=== PATIENT | female | born 1980 | race Caucasian/White ===

== ENCOUNTER → 2022-02-17 11:24 | Outpatient (CLI) | payer BC, SELFPAY | PROVIDERS: PCP Family Medicine; Visit Provider Family Medicine | DX: U07.1 COVID-19 (principal); R05.1 Acute cough | CPT/HCPCS: C9803; U0003; U0005 ==

== ENCOUNTER 2022-09-08 07:41 | Emergency (ER) | payer BC, SELFPAY ==
[2022-09-08] VITALS (7 sets, daily range): BP systolic 121–129; BP diastolic 75–91; PULSE 83–96; RESP 15–18; TEMP 36.7–36.9; O2SAT 97–100; BMI 30.9
--- NOTE | 2022-09-08 08:16 | HMH.EDABDPAI ---
Discharge Plan Disposition Patient Disposition: Home, Self-Care Condition: Fair Prescriptions Prescriptions: New hydrocodone-acetaminophen 5-300 mg tablet 1 tab PO Q6H PRN (Reason: pain) Qty: 7 0RF ondansetron 4 mg film 4 mg PO Q4H 15 Days Qty: 15 0RF Rx Instructions: give 1st dose 30min before emetogenic chemo hydrocodone-acetaminophen 5-325 mg tablet 1 tab PO Q6H Qty: 10 0RF Referrals Follow up/Referrals: Destin Arredondo MD [Staff Physician] - 7-14 days Clinical Impressions Clinical Impression: Cholelithiasis Instructions Patient Instructions: DI for Acute Abdominal Pain Discharge ED Provider: Ag Loomis Abdominal Pain HPI General Chief Complaint: Abdominal Pain Stated Complaint: abd pain vomiting Time Seen by Provider: 09/08/22 08:05 Mode of Arrival: Ambulatory Source of Information: Patient Limitations: No Limitations Description of Symptoms (Recalled from ER Triage Doc. by RN): 42 yo F presents to ED with c/o gallbladder pain. pt has been having symptoms for approx 1 month. pt had abdominal ultrasound on wednesday and it showed stones. History of Present Illness HPI narrative: The patient reports RUQ pain X 2 weeks. She reports the pain worsened last night complaint: abdominal pain Onset (ago): week(s) (2) Consistency: constant Location: RUQ and epigastric Severity: moderate Quality: sharp Radiation: epigastric Relieving factors: nothing Exacerbating factors: eating Related Data Previous Rx's Medication Instructions Recorded hydrocodone 5 mg-acetaminophen 300 1 tab PO Q6H PRN pain #7 tabs 09/08/22 mg tablet hydrocodone 5 mg-acetaminophen 325 1 tab PO Q6H #10 tabs 09/08/22 mg tablet ondansetron 4 mg oral soluble film 4 mg PO Q4H 15 days #15 ea 09/08/22 Allergies Allergy/AdvReac Type Severity Reaction Status Date / Time No Known Allergies Allergy Verified 09/08/22 08:14 [facility] Disclaimer: The information contained in this section may have been updated after the patient was seen, as this information can be updated by other users. Social History Smoking Status: Never smoker alcohol intake: never current occupational status: employed Travel in the last 8 weeks: None ROS Obtained: Yes Systems reviewed as appropriate & no additional complaints except as documented Gastrointestinal Gastrointestingal: Reports abdominal pain, constipation, nausea and vomiting Physical Exam General General appearance: alert and in no apparent distress Head Head exam: atraumatic Eye Eye exam: Present normal appearance ENT ENT exam: Present normal exam Respiratory Respiratory exam: Present normal lung sounds bilaterally Cardiovascular Cardiovascular exam: Present regular rate Abdominal Exam Abdominal exam: Present soft Abdominal tenderness: Present RUQ and epigastrium Neurological Exam Neurological exam: Present alert and oriented X3 Psychiatric Psychiatric exam: Present normal affect and normal mood Skin Skin exam: Present warm and dry Medical Decision Making Bo Inquiry Pt receiving controlled substance: Yes Bo was queried for this patient: Yes Risks and benefits of using a controlled substance: were discussed with pt by me Vital Signs: 09/08/22 07:42 09/08/22 08:00 09/08/22 08:30 Temperature 98.4 F Temperature Source Oral Pulse Rate 92 H 88 Pulse Rate [Left] 96 H Respiratory Rate 15 Blood Pressure 126/87 129/83 Blood Pressure [Right Arm] 122/91 H Blood Pressure Mean 100 100 Blood Pressure Mean [Right Arm] 101 02 Sat by Pulse Oximetry 100 97 98 Oxygen Delivery Method Room Air 09/08/22 09:00 09/08/22 09:30 09/08/22 10:00 Temperature Temperature Source Pulse Rate 83 Pulse Rate [Left] Respiratory Rate 18 Blood Pressure 129/79 128/86 129/80 Blood Pressure [Right Arm] Blood Pressure Mean 92 99 96 Blood Pressure Mean [Right Arm] 02 Sat by Pulse Oximetry Oxygen Delivery Method 0
[2022-09-08 08:22] LABS: Basophils % 0.3 % (0.1-2.0); Eosinophils # 0.2 K/mm3 (0.0-0.4); Eosinophils % 2.4 % (0.1-12.0); Hematocrit 41.4 % (37.0-47.0); Hemoglobin 13.7 g/dL (12.2-16.2); Lymphocytes # 1.7 K/mm3 (0.7-4.5); Lymphocytes % 23.6 % (10-50); Mean Corpuscular HGB Conc 33.1 g/dL (31.8-35.4); Mean Corpuscular Hemoglobin 29.7 pg (27.0-31.2); Mean Corpuscular Volume 89.9 fl (81-99); Mean Platelet Volume 7.9 fl (7.4-10.4); Monocytes # 0.5 K/mm3 (0.1-1.0); Monocytes % 6.3 % (1.7-9.3); Neutrophils # 4.8 K/mm3 (1.8-7.8); Neutrophils % 67.5 % (37.0-80.0); Platelet Count 287 K/mm3 (142-424); Red Blood Count 4.61 M/mm3 (4.20-5.40); Red Cell Distribution Width 13.1 % (11.5-17.5); White Blood Count 7.2 K/mm3 (4.8-10.8)
[2022-09-08 08:23] LABS: Chloride 104 mmol/L (98-107); Potassium 4.2 mmoL/L (3.5-5.1); Sodium 138 mmol/L (136-145)
[2022-09-08 08:25] LABS: Lipase 92 U/L (23-300)
[2022-09-08 08:26] LABS: Alanine Aminotransferase 20 U/L (12-78); Albumin Level 4.4 g/dl (3.5-5.0); Albumin/Globulin Ratio 1.3 (1.1-1.8); Alkaline Phosphatase 51 U/L (38-126); Anion Gap 16.2 mEq/L (5-15); Aspartate Amino Transferase 24 U/L (14-36); Blood Urea Nitrogen 7 mg/dl (7-17); Calcium 8.8 mg/dl (8.4-10.2); Carbon Dioxide 22 mmol/L (22.0-30.0); Creatinine Clearance Estimated 103 mL/min (50-200); Estimated Glomerular Filt Rate 68 ml/min (>60); GFR (African American) 82 ML/MIN (>60); Globulin 3.5 g/dL (1.3-3.2); Glucose 96 mg/dl (74-100); Total Protein,Serum 7.9 g/dl (6.3-8.2)
--- NOTE | 2022-09-08 09:03 | PC.NURSE ---
Called lab regarding lipase add on
[2022-09-08 09:28] LABS: Lipase 99 U/L (23-300)
[2022-09-08 09:47] LABS: Urine Pregnancy, HCG Qual. Negative (Negative)
== END 2022-09-08 10:43 | disposition home or self-care (01) ==
PROVIDERS: Emergency Provider Emergency Medicine
DX: K80.20 Calculus of gallbladder without cholecystitis without obstruction (principal); R10.11 Right upper quadrant pain
CPT/HCPCS: 80053; 81025; 83690; 85025; 96361; 96374; 96375; 96376; 99284; J2405

== ENCOUNTER → 2022-09-22 12:55 | Outpatient (CLI) | payer BC, SELFPAY ==
[2022-09-22 14:16] LABS: Basophils % 0.3 % (0.1-2.0); Eosinophils # 0.1 K/mm3 (0.0-0.4); Eosinophils % 2.8 % (0.1-12.0); Hemoglobin 12.7 g/dL (12.2-16.2); Lymphocytes # 1.4 K/mm3 (0.7-4.5); Lymphocytes % 29.4 % (10-50); Mean Corpuscular HGB Conc 32.4 g/dL (31.8-35.4); Mean Corpuscular Hemoglobin 29.4 pg (27.0-31.2); Mean Corpuscular Volume 90.7 fl (81-99); Mean Platelet Volume 8.2 fl (7.4-10.4); Monocytes # 0.3 K/mm3 (0.1-1.0); Monocytes % 5.9 % (1.7-9.3); Neutrophils % 61.7 % (37.0-80.0); Platelet Count 273 K/mm3 (142-424); Red Cell Distribution Width 13.2 % (11.5-17.5); White Blood Count 4.9 K/mm3 (4.8-10.8)
[2022-09-22 15:46] LABS: Chloride 105 mmol/L (98-107); Potassium 3.7 mmoL/L (3.5-5.1); Sodium 140 mmol/L (136-145)
[2022-09-22 15:48] LABS: Amylase 60 U/L (30-110); Blood Urea Nitrogen 9 mg/dl (7-17); Estimated Glomerular Filt Rate 68 ml/min (>60); GFR (African American) 82 ML/MIN (>60)
[2022-09-22 15:49] LABS: Alanine Aminotransferase 19 U/L (12-78); Albumin Level 4.1 g/dl (3.5-5.0); Albumin/Globulin Ratio 1.3 (1.1-1.8); Alkaline Phosphatase 48 U/L (38-126); Anion Gap 13.7 mEq/L (5-15); Aspartate Amino Transferase 22 U/L (14-36); Bilirubin,Total 0.3 mg/dl (0.2-1.3); Calcium 8.5 mg/dl (8.4-10.2); Carbon Dioxide 25 mmol/L (22.0-30.0); Globulin 3.1 g/dL (1.3-3.2); Glucose 90 mg/dl (74-100); Lipase 124 U/L (23-300); Total Protein,Serum 7.2 g/dl (6.3-8.2)
== END ==
PROVIDERS: PCP Physician Assistant; Visit Provider Surgery
DX: K80.20 Calculus of gallbladder without cholecystitis without obstruction (principal)
CPT/HCPCS: 36415; 80053; 82150; 83690; 85025

== ENCOUNTER 2022-09-24 06:11 | Day surgery (SDC) | payer BC, SELFPAY ==
[2022-09-22 17:37] VITALS: BMI 30.9
[2022-09-24] VITALS (12 sets, daily range): BP systolic 120–142; BP diastolic 74–89; PULSE 81–103; RESP 16–23; TEMP 36.1–43; O2SAT 91–99
[2022-09-24 06:25] LABS: Urine Pregnancy, HCG Qual. Negative (Negative)
--- NOTE | 2022-09-24 06:41 | P.PN_ITS ---
[facility] Disclaimer: The information contained in this section may have been updated after the patient was seen, as this information can be updated by other users. Medical History History of gastroesophageal reflux (GERD) History of hypothyroidism Surgical History History of repair of right rotator cuff Family History Other Family history of CABG Social History Smoking Status: Never smoker alcohol intake: never substance use type: denies use current occupational status: employed Travel in the last 8 weeks: None [facility] Anesthesia Checklist Patient Identification Patient Identification: Arm Band and Verbal (Name & ) Structural Data Admitted From: Home Planned Operative Procedure/s: Lap cholecystectomy Consent for Planned Operative Procedure(s) Verified: Yes NPO Status Verified Time NPO: 00:00 Chart Verification Results Verified: HCG Additional verifications Anesthesia Reactions: No Hx Blood Transfusions: No Blood Transfusion Reaction: No Airway Assessment C-Spine Mobility Assessed: Yes TMJ Mobility Assessed: Yes Dentition: Good Dentition Neurological Assessment Level of Consciousness: Awake Hx Seizures: No Numbness or tingling in extremities: No Anesthesia Plan Anesthesia Risk discussed: Yes Anesthesia Plan: Verified ASA Class: II Anesthesia Type: General
--- NOTE | 2022-09-24 07:40 | P.OP_ITS ---
Date of procedure: 09/24/22 Pre-op Diagnosis:: Chronic calculus cholecystitis Post-op Diagnosis:: Same Procedure performed:: Laparoscopic cholecystectomy Surgeon:: Destin Arredondo MD INSTRUMENT WORKER:: Debra Scott Anesthesia: GETChrissie Estimated blood loss (mL): 15 Operative findings:: Infundibular thickening Moderate pericholecystic fat stranding Operative note:: After informed consent was obtained, the patient was taken to the operating room and placed in the supine position. General anesthesia was induced and the abdomen was prepped and draped in a sterile fashion. After infiltration with local anesthetic an infraumbilical incision was made. A Veress needle was placed in position. The abdomen was insufflated. A 5 mm optical trocar was placed in position. Under direct visualization, a 12 mm trocar was placed in the subxiphoid position and 2 additional 5 mm trocars were placed in the right upper quadrant. The gallbladder was elevated up and over the liver margin. The tissue around the cystic duct was carefully dissected. 3 clips were placed proximally and the duct was transected with harmonic teresa. Harmonic teresa were then utilized to dissect the gallbladder away from the liver margin with careful attention to the control of the cystic artery. The gallbladder was placed in a retrieval bag and removed through the subxiphoid trocar site. The right upper quadrant was thoroughly irrigated. No active bleeding or bile leak was noted. Fascia at the subxiphoid trocar site was reapproximated utilizing the NeoClose device. The remaining trocars were removed. All wounds were irrigated and skin was closed with 4-0 Monocryl in a mattress fashion to facilitate hemostasis Steri-Strips were applied. The patient's anesthetic agents were reversed and extubation was completed prior to transfer to recovery in stable condition. Condition: stable Disposition: PACU Specimens:: Gallbladder Complications:: No immediate
--- NOTE | 2022-09-24 07:49 | EXP.ANES.I ---
[facility] Anesthesia Record Part I Anesthesia Record I Intake, IV Amount: 600 Estimated blood loss (mL): 15 Urine output (mL): 0 Blood Pressure: 126/74 SaO2: 92 Pulse Rate: 103 Respiratory Rate: 23 Temperature: 98.2 F Patient is:: Drowsy and Oral/Nasal airway Stable to PACU at:: 07:50
[2022-09-25 14:33] VITALS: BP 137/82; PULSE 83; TEMP 36.1
--- NOTE | 2022-09-25 14:33 | P.PNANES_ITS ---
[facility] Anesthesia Record Part II Anesthesia Record Part II Discharge Time: 08:39 Destination: Surgical Day Care (OP Surgery) PACU nurse assessment reviewed?: Yes Patient Condition:: Good Anesthesia Complications:: None Swallowing reflex intact?: Yes Cyanosis?: No Blood Pressure: 137/82 Pulse Rate: 83 Temperature: 97 F Mental Status: Alert & Oriented Pain level:: 4 Nausea and/or vomitting:: None Intake, IV Amount: 0
== END 2022-09-24 09:10 | disposition home or self-care (01) ==
PROVIDERS: PCP Physician Assistant; Visit Provider Surgery
PROC: 0FT44ZZ Resection of Gallbladder, Percutaneous Endoscopic Approach (ICD-10-PCS; CPT 47562; principal; 2022-09-24 07:00)
DX: K81.1 Chronic cholecystitis (principal)
CPT/HCPCS: 47562; 81025; 96374; J2405

== ENCOUNTER 2023-11-22 14:16 | Outpatient (CLI) | payer BC, SELFPAY ==
[2023-11-22 15:08] LABS: Alanine Aminotransferase 20 U/L (12-78); Albumin/Globulin Ratio 1.2 (1.1-1.8); Alkaline Phosphatase 31 U/L (38-126); Anion Gap 10.2 mEq/L (5-15); Aspartate Amino Transferase 26 U/L (14-36); Bilirubin,Total 0.6 mg/dl (0.2-1.3); Blood Urea Nitrogen 8 mg/dl (7-17); Calcium 8.8 mg/dl (8.4-10.2); Carbon Dioxide 26 mmol/L (22.0-30.0); Chloride 107 mmol/L (98-107); Chol/HDL Ratio 3.7 (1-3.5); Cholesterol 169 mg/dl (140-200); Estimated Glomerular Filt Rate 78 ml/min (>60); GFR (African American) 94 ML/MIN (>60); Globulin 3.3 g/dL (1.3-3.2); Glucose 87 mg/dl (74-100); HDL Cholesterol 46 mg/dl (40-60); Potassium 4.2 mmoL/L (3.5-5.1); Sodium 139 mmol/L (136-145); Total Protein,Serum 7.3 g/dl (6.3-8.2); Triglycerides 85 mg/dl (30-150); VLDL Cholesterol 17 mg/dL (0-40)
[2023-11-22 15:19] LABS: Direct LDL Cholesterol 86.24 mg/dL (100-129)
[2023-11-22 18:28] LABS: Hemoglobin A1C 4.6 % (4.0-6.0)
== END 2023-11-22 23:59 | disposition home or self-care (01) ==
LOC: LAB 14:18
PROVIDERS: Visit Provider Internal Medicine Endocrinology, Diabetes & Metabolism
DX: E66.9 Obesity, unspecified (principal)
CPT/HCPCS: 36415; 80053; 80061; 83036

== ENCOUNTER 2024-03-22 12:04 | Emergency (ER) | payer BC, SELFPAY ==
[2024-03-22 12:20] VITALS: BP 130/86; PULSE 105; RESP 18; TEMP 37.2; O2SAT 98; BMI 25.7
--- NOTE | 2024-03-22 12:27 | EXP.UTC ---
Discharge Plan Disposition Patient Disposition: Home, Self-Care Condition: Good Prescriptions Prescriptions: New nitrofurantoin monohyd/m-cryst [Macrobid] 100 mg capsule 100 mg PO Q12H 7 Days Qty: 14 0RF Rx Instructions: must administer with a meal/food phenazopyridine [Pyridium] 200 mg tablet 200 mg PO Q8H 2 Days Qty: 6 0RF No Action amitriptyline 50 mg tablet 50 mg PO DAILY pantoprazole 40 mg tablet,delayed release (DR/EC) 40 mg PO DAILY buspirone 7.5 mg tablet 7.5 mg PO DAILY levothyroxine 112 mcg tablet 112 mcg PO DAILY bupropion HCl 300 mg tablet extended release 24 hr 300 mg PO DAILY Wegovy 1.7 mg/0.75 mL pen injector 1.7 mg SQ WEEKLY Referrals Follow up/Referrals: Ila Isbell PA [Primary Care Provider] - See instructions Activity Restrictions/Add. Instructions Additional Instructions/Restrictions: *Increase fluids. Water not Soda or Tea *Start antibiotic immediately and be sure to take as ordered for the FULL length of time although you should start to see improvement over the next 48 hours *Pyridium as needed Remember this medication will turn your urine . This is normal but it will stain what ever it gets on *You should not use Pyridium for more than 48 hours. If so , follow up with your primary physician to review urine culture and ensure that antibiotic is adequate for infection *Be SURE to follow up anytime for new or worsening symptoms with your family doctor. AND in 48 hours for urine culture results with your family doctor, if you do not have a doctor then you may call back to the [facility] for urine culture results and further treatment. We do recommend that you choose and establish care with a Primary Care Physician. ?AND follow up with them ?in 10-14 days to repeat UA to ensure infection is resolved and blood no longer present *Be sure to let your PCP know that we sent urine cultures from the [facility] so they can follow up to ensure that you area the on the correct antibiotic Call your doctor office and make appointment for 48 hours (2 days from today) ?to follow up and get the results of your urine culture and further treatment Clinical Impressions Clinical Impression: UTI (urinary tract infection) Instructions Patient Instructions: DI for Acute Cystitis, Nitrofurantoin, Phenazopyridine Print Language Print Language: Khmer Discharge ED Provider: Kaley Horton [facility] [place] General Stated complaint: freg. burning when urinating Mode of Arrival: Ambulatory Source of Information: Patient Limitations: No Limitations Time Seen by Provider: 03/22/24 12:27 Description of Symptoms (Recalled from Triage Doc. by RN): PATIENT C/O BURNING AND FREQUENCY WITH URINATION SINCE YESTERDAY HEENT Symptoms (Recalled from RN notes): No Resp Symptoms (Recalled from RN notes): No Skin Symptoms (Recalled from RN notes): No MS Symptoms (Recalled from RN notes): No Functional Status (Recalled from RN notes): WNL History of Present Illness Provider Complaint: Patient states that she thinks she may have a UTI States that she started yesterday with feeling of urgency, frequency and burning with urination, Denies fever, chills, body aches, or abdominal or back pain Denies hx of kidney stones, denies pain that radiates from back States that this morning she was still having the burning and urgency and frequency so she came in States that she has Mirena in place Related Data Home Medications ?Medication ?Instructions ?Recorded ?Confirmed amitriptyline 50 mg tablet 50 mg PO DAILY 03/22/24 03/22/24 bupropion HCl 300 mg 24 hr tablet, 300 mg PO DAILY 03/22/24 03/22/24 extended release buspirone 7.5 mg tablet 7.5 mg PO DAILY 03/22/24 03/22/24 levothyroxine 112 mcg tablet 112 mcg PO DAILY 03/22/24 03/22/24 pantoprazole 40 mg tablet,delayed 40 mg PO DAILY 03/22/24 03/22/24 release semaglutide (weight loss) 1.7 1.7 mg SQ WEEKLY 03/22/24 03/22/24 mg/0.75 mL subcutaneous pen injector (Wegovy) Previous Rx's ?Medication ?Instructions ?Recorded nitrofurantoin 100 mg PO Q12H 7 days #14 caps 03/22/24 monohydrate/macrocrystals 100 mg capsule (Macrobid) phenazopyridine 200 mg tablet 200 mg PO Q8H pain 2 days #6 tabs 03/22/24 (Pyridium) Allergies Allergy/AdvReac Type Severity Reaction Status Date / Time No Known Allergies Allergy Verified 09/30/22 13:06 Worker's Comp Is this a Worker's Comp case?: No [facility] Disclaimer: The information contained in this section may have been updated after the patient was seen, as this information can be updated by other users. Medical History (Updated 03/22/24 @ 12:40 by Kaley Horton APRN) History of gastroesophageal reflux (GERD) History of hypothyroidism Surgical History (Updated 09/30/22 @ 13:28 by Destin Arredondo MD) History of laparoscopic cholecystectomy History of repair of right rotator cuff Family History Other Family history of CABG Social History Smoking Status: Never smoker alcohol intake: never substance use type: denies use current occupational status: employed Travel in the last 8 weeks: None Have you lived/traveled outside US in past 30 days?: No Contact w/someone who lives/traveled outside US past 30 days?: No Exposure to someone with infectious disease in past 14 days?: No Do you have a fever (greater than 100.4 F or 38 C)?: No Have you tested positive for COVID-19: No Exposed to someone with COVID-19 in past 14 days?: No Do you have a sore throat?: No Do you have a cough?: No Do you have any weakness?: No Do you have any diarrhea?: No Are you experiencing any unusual bleeding?: No Do you have any muscle aches/pain?: No Do you have any abdominal pain?: No Are you experiencing loss of taste or smell?: No ROS Obtained: Yes All systems reviewed & no additional complaints except as documented and Yes Systems reviewed as appropriate & no additional complaints except as documented Constitutional Constitutional: Reports system reviewed and no additional complaints, except as documented, Reports as per HPI, Denies body ache, Denies chills and Denies fever(s) ENT Ears, Nose, Mouth, and Throat: Reports system reviewed and no additional complaints, except as documented and Reports as per HPI Cardiovascular Cardiovascular: Reports system reviewed and no additional complaints, except as documented and Reports as per HPI Respiratory Respiratory: Reports system reviewed and no additional complaints, except as documented and Reports as per HPI Gastrointestinal Gastrointestingal: Reports system reviewed and no additional complaints, except as documented and as per HPI; Denies abdominal pain Genitourinary Female Genitourinary: Reports system reviewed and no additional complaints, except as documented, Reports as per HPI, Reports dysuria, Denies flank pain, Denies pelvic pain, Reports urinary frequency and Reports urinary urgency Musculoskeletal Musculoskeletal: Reports system reviewed and no additional complaints, except as documented and Reports as per HPI Integumentary/Breasts Skin/Breast: Reports system reviewed and no additional complaints, except as documented and Reports as per HPI Neurologic Neurologic: Reports system reviewed and no additional complaints, except as documented and Reports as per HPI Physical Exam General General appearance: alert and in no apparent distress ENT ENT exam: Present mucous membranes moist Respiratory Respiratory exam: Present normal lung sounds bilaterally; Absent respiratory distress or wheezes Cardiovascular Cardiovascular exam: Present regular rate, normal rhythm and normal heart sounds Abdominal Exam Abdominal exam: Present soft and normal bowel sounds; Absent distention, tenderness, guarding or rebound Back Exam Back exam: Present normal inspection and full ROM; Absent tenderness, CVA tenderness (R) or CVA tenderness (L) Neurological Exam Neurological exam: Present alert, oriented X3 and normal gait Medical Decision Making Medical Records Screening: Per USPSTF and CDC recommendations, given the prevalence of disease in our region, it is our hospital?s policy to screen for HIV and viral Hepatitis for all patients aged 18 and over and those with ongoing risk factors. Bo Inquiry Pt receiving controlled substance: No Bo was queried for this patient: No Vital Signs: 03/22/24 12:20 Temperature 99.0 F Temperature Source Oral Pulse Rate [Left Brachial] 105 H Respiratory Rate 18 Blood Pressure [Left Arm] 130/86 Blood Pressure Mean [Left Arm] 100 Blood Pressure Source [Left Arm] Automatic Cuff Blood Pressure Position [Left Arm] Sitting 02 Sat by Pulse Oximetry 98 Oxygen Delivery Method Room Air Lab Data Lab results reviewed: Yes I reviewed the patient's lab results.
[2024-03-22 12:28] LABS: Apearance,Urine Cloudy (Clear); Color,Urine Yellow (Yellow); PH,Urine 5.5 (5.0-8.5); Specific Gravity, Urine 1.015 (1.005-1.030)
[2024-03-22 12:29] LABS: Bilirubin,Urine Negative (Negative); Blood, Urine 3+ (Negative); Glucose,Urine (UA) Negative (Negative); Ketones,Urine Negative (Negative); Protein,Urine Negative (Negative); UTC Leukocyte Esterase,Urine 2+ (Negative); UTC Nitrate,Urine Negative (Negative); Urobilinogen,Urine 0.2 EU/dl (0.2)
[2024-03-22 12:42] VITALS: BP 130/86; PULSE 105; RESP 18; TEMP 37.2; O2SAT 98
--- NOTE | 2024-03-24 11:43 | PC.NURSE ---
SPOKE WITH PATIENT REGARDING HER URINE CULTURE RESULTS, WHICH SUGGESTS CONTAMINATION. PATIENT STATES SHE DOESN'T FEEL LIKE HER SYMPTOMS ARE IMPROVING MUCH. PATIENT ADVISED TO FOLLOW UP WITH PCP AND HAVE URINE RE-CHECKED
== END 2024-03-22 12:44 | disposition home or self-care (01) ==
PROVIDERS: Emergency Provider Nurse Practitioner; PCP Physician Assistant
DX: N39.0 Urinary tract infection, site not specified (principal)
CPT/HCPCS: 81003; 87086; 99213; G0381

== ENCOUNTER 2024-07-20 08:50 | Day surgery (SDC) | payer BC, SELFPAY ==
[2024-07-18 13:53] VITALS: BMI 25.0
[2024-07-20 09:17] VITALS: BP 118/67; PULSE 95; RESP 18; TEMP 37; O2SAT 98
[2024-07-20 09:20] LABS: Urine Pregnancy, HCG Qual. Negative (Negative)
--- NOTE | 2024-07-20 09:23 | EXP.ANES.CKL ---
[facility] Disclaimer: The information contained in this section may have been updated after the patient was seen, as this information can be updated by other users. Medical History Depression Anxiety History of gastroesophageal reflux (GERD) History of hypothyroidism Surgical History History of laparoscopic cholecystectomy History of repair of right rotator cuff Family History Other Family history of CABG Social History Smoking Status: Never smoker alcohol intake: never substance use type: denies use current occupational status: employed Travel in the last 8 weeks?: None Have you lived/traveled outside US in past 30 days?: No Contact w/someone who lives/traveled outside US past 30 days?: No Exposure to someone with infectious disease in past 14 days?: No Do you have a fever (greater than 100.4 F or 38 C)?: No Have you tested positive for COVID-19?: No Exposed to someone with COVID-19 in past 14 days?: No Do you have a sore throat?: No Do you have a cough?: No Do you have any weakness?: No Do you have any diarrhea?: No Are you experiencing any unusual bleeding?: No Do you have any muscle aches/pain?: No Do you have any abdominal pain?: No Are you experiencing loss of taste or smell?: No [facility] Anesthesia Checklist Patient Identification Patient Identification: Arm Band Structural Data Admitted From: Home Planned Operative Procedure/s: Colonoscopy Consent for Planned Operative Procedure(s) Verified: Yes Verified Documents: Surgical Consent and History and Physical NPO Status Verified Time NPO: 06:00 (finished prep) Additional verifications Anesthesia Reactions: No Hx Blood Transfusions: No Blood Transfusion Reaction: No Airway Assessment Mallampati Score:: Class II C-Spine Mobility Assessed: Yes TMJ Mobility Assessed: Yes Dentition: Good Dentition Neurological Assessment Level of Consciousness: Awake, Alert and Appropriate Anesthesia Plan Anesthesia Risk discussed: Yes Anesthesia Plan: Verified ASA Class: II Anesthesia Type: MAC
--- NOTE | 2024-07-20 09:33 | P.HP_ITS ---
History of Present Illness *Admission Date: 07/20/24 *Reason for visit:: Initial screening colonoscopy *History of present illness: Mrs. Almanzar is a 44-year-old female who is here for screening for colon cancer. The examination is deemed medically necessary for screening colonoscopy. The patient has been seen, interviewed and examined prior to the procedure by both myself and the anesthesia provider. [facility] Disclaimer: The information contained in this section may have been updated after the patient was seen, as this information can be updated by other users. Medical History (Updated 07/20/24 @ 09:48 by Quinton Anaya II, MD) Depression Anxiety History of gastroesophageal reflux (GERD) History of hypothyroidism Surgical History History of laparoscopic cholecystectomy History of repair of right rotator cuff Family History Other Family history of CABG Social History Smoking Status: Never smoker alcohol intake: never substance use type: denies use current occupational status: employed Travel in the last 8 weeks?: None Have you lived/traveled outside US in past 30 days?: No Contact w/someone who lives/traveled outside US past 30 days?: No Exposure to someone with infectious disease in past 14 days?: No Do you have a fever (greater than 100.4 F or 38 C)?: No Have you tested positive for COVID-19?: No Exposed to someone with COVID-19 in past 14 days?: No Do you have a sore throat?: No Do you have a cough?: No Do you have any weakness?: No Do you have any diarrhea?: No Are you experiencing any unusual bleeding?: No Do you have any muscle aches/pain?: No Do you have any abdominal pain?: No Are you experiencing loss of taste or smell?: No Other Medical History Have you received the Flu Vaccine for this season: Yes Have you received the Pneumonia Vaccine: No Review of Systems Review of Systems Review of systems (narrative): Negative *Cardiovascular Comments: Negative *Gastrointestinal Comments: Negative *Genitourinary Comments: Negative *Musculoskeletal Comments: Negative *Neurologic Comments: Negative Meds Home Medications and Allergies Home Medications ?Medication ?Instructions ?Recorded ?Confirmed ?Type amitriptyline 50 mg tablet 50 mg PO DAILY 03/22/24 07/20/24 History bupropion HCl 300 mg 24 hr tablet, 300 mg PO DAILY 03/22/24 07/20/24 History extended release buspirone 7.5 mg tablet 7.5 mg PO DAILY 03/22/24 07/20/24 History levothyroxine 112 mcg tablet 112 mcg PO DAILY 03/22/24 07/20/24 History pantoprazole 40 mg tablet,delayed 40 mg PO DAILY 03/22/24 07/20/24 History release semaglutide (weight loss) 1.7 1.7 mg SQ WEEKLY 03/22/24 07/20/24 History mg/0.75 mL subcutaneous pen injector (Wegovy) New Prescriptions to Start Prescriptions: Allergies Allergy/AdvReac Type Severity Reaction Status Date / Time No Known Allergies Allergy Verified 07/20/24 09:14 Exam Data for Last 24 hours Vital signs and Labs for Last 24 Hours: Temp Pulse Resp BP Pulse Ox O2 Del Method 98.6 F 95 H 18 118/67 98 Room Air 07/20/24 09:17 07/20/24 09:17 07/20/24 09:17 07/20/24 09:17 07/20/24 09:17 07/20/24 09:17 Laboratory Results - last 24 hr 07/20/24 09:00: Urine HCG, Qual Negative I & O for Last 24 hours: Intake & Output 07/17/24 07/18/24 07/19/24 07/20/24 23:59 23:59 23:59 23:59 Weight 146 lb *Routine HEENT Exam Head: Present normocephalic Eye: Present EOMI and PERRL ENT: Present mucous membranes moist *Routine Neck Exam Neck: Present supple *Routine Respiratory Exam Respiratory: Present CTA bilaterally *Routine Cardiovascular Exam Cardiovascular: Present RRR *Routine Abdominal Exam Abdominal: Present soft and normoactive bowel sounds; Absent tenderness *Routine Rectal Exam Rectal:: deferred *Routine Genitalia Exam Genitalia:: deferred *Routine Extremities Exam Extremities: Absent cyanosis, clubbing or edema *Routine Skin Exam Skin: Present warm; Absent rash *Routine Neurological Exam Neurological: Present alert and oriented X3 Assessment and Plan *Assessment and plan (1) Screening for colon cancer: Status: Acute Category: Medical Code(s): Z12.11 - Encounter for screening for malignant neoplasm of colon Plan A/P: 1. Screening for colon cancer is the preprocedural diagnosis. The patient will be anesthetized/sedated using MAC sedation. The patient has been seen and examined. Cardiac and lung assessment prior to the examination is stable. Proceed with planned screening colonoscopy.
[2024-07-20 09:39] VITALS: O2SAT 100
--- NOTE | 2024-07-20 09:48 | HMH.PROCNOTE ---
[facility] Procedure Note Date: 07/20/24 Time: 10:02 Procedure Note:: Colonoscopy Procedure Report: Colonoscopy Endoscopist: Quinton Anaya II, MD Referring physician: Ila Isbell PA-C, [address], [place] [address] Date of Procedure: July 20, 2024 Equipment: Olympus 190 variable stiffness pediatric colonoscope Sedation: MAC sedation Indication: Mrs. Almanzar is a 44-year-old female who is here for initial screening colonoscopy. The patient reports no abdominal pain, weight loss, change in his bowel habits or rectal bleeding. She reports no family history of colon cancer. Procedure: Prior to the procedure, a history and physical exam was performed, and patient's medications and allergies were reviewed. The risks, benefits and alternatives of the sedation and procedure were discussed with the patient. All questions were answered and informed consent was obtained. The patient was brought to the procedure room. Patient identification and proposed procedure were verified by the physician and the nurse. The patient was placed in a left lateral decubitus position and the scope was passed under direct vision. Throughout the procedure, the patient's blood pressure, pulse, and oxygen saturations were monitored continuously. The colonoscopy was accomplished without difficulty. The patient tolerated the procedure well. Findings: On digital rectal examination there was normal rectal tone. There were no external hemorrhoids. The colonoscope was introduced through the anal canal to the rectum and advanced to the cecum. The ileocecal valve and appendiceal orifice were identified. The scope was advanced a short distance into the ileum which appeared grossly normal. The scope was then withdrawn into the colon. The cecum, ascending, transverse, descending, sigmoid and rectum were grossly normal. There were no mucosal abnormalities identified. Upon retroflexion within the rectum there were grade 1 internal hemorrhoids. The preparation was fair throughout with [place] Preparation Score of 7 out of 9. The cecal time was 10 minutes. Impression: 1. Normal colonoscopy with intubation of the terminal ileum Plan: The patient will not require surveillance colonoscopy again for 10 years by ACS guidelines.
[2024-07-20 10:07] VITALS: BP 93/59; PULSE 92; RESP 14; TEMP 36.3; O2SAT 98
[2024-07-20 10:17] VITALS: BP 91/60; PULSE 88; RESP 14; O2SAT 99
[2024-07-20 10:27] VITALS: BP 105/68; PULSE 96; RESP 14; O2SAT 99
[2024-07-20 10:37] VITALS: BP 119/61; PULSE 80; RESP 16; O2SAT 100
== END 2024-07-20 10:37 | disposition home or self-care (01) ==
PROVIDERS: PCP Physician Assistant; Visit Provider Internal Medicine Gastroenterology
PROC: 0DJD8ZZ Inspection of Lower Intestinal Tract, Via Natural or Artificial Opening Endoscopic (ICD-10-PCS; CPT 45378; principal; 2024-07-20 10:30)
DX: Z12.11 Encounter for screening for malignant neoplasm of colon (principal); K64.0 First degree hemorrhoids
CPT/HCPCS: 45378; 81025

== ENCOUNTER 2024-12-26 11:31 | Outpatient (CLI) | payer BC, SELFPAY ==
--- OUTSIDE RECORDS SUMMARY | 2024-12-26 11:34 | XMS_ITS | Encounter Summary ---
[facility] Address [address] [place] [address] Care Team Providers Care Press Tender Smoke Signal Name Role Phone Ila Isbell PA-C Primary Care Provider Reason for Visit * Reason Comments Med Refill Encounter Details Date Type Department Care Team (Late st Contact Info) Description 11/16/2024 Refill [facility] [address] [facility] [address] [place] [phone] Ila Isbell PA-C [address] [facility] [address] [place], [place] [id number] Moderate episode of recurrent major depressive disorder; Anxiety; Hypothyroidism, unspecified type Social History Tobacco Use Types Packs/Day Years Used Date Smoking Tobacco: Former Cigarettes Q uit: 03/15/2013 Smokeless Tobacco: Never Alcohol Use Standard Drinks/Week Comments Yes 2 (1 standard drink = 0.6 oz pur e alcohol) PHQ-2 Answer Date Recorded Retired PHQ-9: Brief Depression Severity Measure Score 15 06/05/2022 PHQ-2 Answer Date Recorded Patient Health Questionnaire-9 Score 10 01/14/2024 Comments No Sex and Gender Information Value Date Recorded Sex Assigned at Female 01/22/2024 8:22 AM EST Legal Sex Female 11:52 AM EDT Gender Identity Female 01/22/2024 8:22 AM EST Sexual Orientation Straight 01/22/2024 8: 22 AM EST documented as of this encounter Miscellaneous Notes * Telephone Encounter - Aditi Nelson MA - 11/24/2024 12:41 PM EDT Called and spoke with patient, she would like labs faxed to [facility] to have themcompleted. Faxed lab orders to [facility] * Telephone Encounter - Ila Isbell PA-C - 11/23/2024 4:01 PM EDT Sent in refill, please have her get labs that were previously ordered prior to her follow up if possible. * Telephone Encounter - Aditi Nelson MA - 11/16/2024 11:05 AM EDT Rx Refill Note Requested Prescriptions Pending Prescriptions Disp Refills amitriptyline (ELAVIL) 50 MG tablet [Pharmacy Med Name: amitriptyline 50 mg tablet] 30 tablet 5 Sig: TAKE ONE TABLET BY MOUTH EVERY NIGHT buPROPion XL (WELLBUTRIN XL) 300 MG 24 hr tablet [Pharmacy Med Name: bupropion HCl XL 300 mg 24 hr tablet, extended release] 30 tablet 5 Sig: TAKE ONE TABLET BY MOUTH EVERY MORNING busPIRone (BUSPAR) 7.5 MG tablet [Pharmacy Med Name: buspirone 7.5 mg tablet] 60 tablet 5 Sig: TAKE ONE TABLET BY MOUTH 2 TIMES A DAY levothyroxine (SYNTHROID, LEVOTHROID) 112 MCG tablet [Pharmacy Med Name: levothyroxine 112 mcg tablet] 30 tablet 5 Sig: TAKE ONE TABLET BY MOUTH ONCE A DAY Last office visit with prescribing clinician: 04/14/2024 Last telemedicine visit with prescribing clinician: Visit date not found Next office visit with prescribing clinician: Visit date not found Called and lvm for patient to return call, office number given. RELAY: Please schedule her for a follow-up appointment with Ila. Aditi Nelson MA 11/16/24, 11:06 EDT documented in this encounter Plan of Treatment Upcoming Encounters Date Type Department Care Team (Late st Contact Info) Description 12/29/2024 2:00 PM EDT Office Visit [facility] [address] [facility] [address] [place] [address] Ila Isbell PA-C [address] [facility] [address] [place] [address] documented as of this encounter Visit Diagnoses Diagnosis Moderate episode of recurrent major depressive disorder Anxiety Anxiety state, unspecified Hypothyroidism, unspecified type documented in this encounter Additional Health Concerns Assessment Noted Time PHQ-2 Depression Total Score: 4 06/06/19 23 3:27 PM EDT documented as of this encounter Care Teams Press Tender Smoke Signal Relationship Specialty Start Date End Date Ila sIbell PA-C [address] [facility] [address] [place] [address] PCP - General Physician Glass Products Inspector 06/05/22 documented as of this encounter
--- OUTSIDE RECORDS SUMMARY | 2024-12-26 11:34 | XMS_ITS | Clinical Summary ---
Author Organization [facility] [place] [address] Care Team Providers Care Smoke Control Supervisor Name Role Phone Unavailable Primary Care Provider Unavailabl e Social History Tobacco Use Types Packs/Day Years Used Date Smoking Tobacco: Never Assessed Comments Unknown Sex and Gender Information Value Date Recorded Sex Assigned at Not on file Legal Sex Female 7:25 AM EDT Gender Identity Not on file Sexual Orientation Not on file Plan of Treatment Health Maintenance Due Date Last Done Comments Annual Wellness Exam 1981 DTaP/TDaP/Td (1 - Tdap) 1997 Hepatitis B Vaccine (1 of 3 - 19+ 3-dose series) 1997 Cologuard 2023 Colon Cancer Screening 2023 Colonoscopy 2023 FIT 2023 Sigmoidoscopy 2023 Virtual Colonography 2023 COVID-19 Vaccine (2023-2 5 season) 2024 Influenza Vaccine (#1) 2024 Meningococcal B Vaccine Aged Out No l onger eligible based on patient's age to complete this topic Pneumococcal Vaccine 0-49 Aged Out No longer eligible based on patient's age to complete this topic
--- OUTSIDE RECORDS SUMMARY | 2024-12-26 11:34 | XMS_ITS | Encounter Summary ---
[facility] Address [address] [place] [address] Care Team Providers Care Mechatronics Engineer Name Role Phone Ila Isbell PA-C Primary Care Provider [phone] Reason for Visit * Reason Comments Med Refill Encounter Details Date Type Department Care Team (Late st Contact Info) Description 12/24/2024 Refill [facility] [address] [facility] [address] [place] [phone] Ila Isbell PA-C [address] [facility] [address] [place], [place] [id number] GERD without esophagitis Social History Tobacco Use Types Packs/Day Years [...] encounter Miscellaneous Notes * Telephone Encounter - Kelli Brenner MA - 12/25/2024 5:14 PM EDT Last Appt: 04/14/24 Next Appt:12/29/24 Medication: Pantoprazole Last refill: 04/14/24 # of refills: 90/ 1 Pharmacy: [facility] [place] [address] [address] - [phone] PH - [phone] FX documented in this encounter Plan of Treatment Upcoming Encounters Date Type Department Care Team (Late st Contact Info) Description 12/29/2024 2:00 PM EDT Office Visit [facility] [address] [phone] Ila Isbell PA-C [address] [address] documented as of this encounter Visit Diagnoses Diagnosis GERD without esophagitis Esophageal reflux documented in this encounter Additional Health Concerns Assessment Noted Time PHQ-2 Depression Total Score: 4 06/06/19 23 3:27 PM EDT documented as of this encounter Care Teams Mechatronics Engineer Relationship Specialty Start Date End Date Ila Isbell PA-C [address] [facility] [address] [place] [address] PCP - General Physician Commander [employer] 06/05/22 documented as of this encounter
--- OUTSIDE RECORDS SUMMARY | 2024-12-26 11:35 | XMS_ITS | Clinical Summary ---
Author Organization [facility] Address [address] [place] [address] Care Team Providers Care Commercial Photographer Name Role Phone Ila Isbell PA-C Primary Care Provider [phone] Allergies No known active allergies Medications Levonorgestrel (MIRENA, 52 MG, IU) by Intrauterine route. Active Sod Picosulfate-Ma g Ox-Cit Acd 10-3.5-12 MG-GM -GM/160ML solution Take 350 mL by mouth Take As Directed for 1 dose. 350 mL 04/10/19 25 Active promethazine (PHENERGAN) 12.5 MG tabletIndicati ons:GERD without esophagitis,Na usea and vomiting, unspecified vomiting type Take 1-2 tablets by mouth Every 8 (Eight) Hours As Needed for Nausea or Vomiting. 30 tablet 1 07/13/19 25 Active ondansetron (ZOFRAN) 4 MG tabletIndicati ons:Nausea and vomiting, unspecified vomiting type Take 1 tablet by mouth Every 8 (Eight) Hours As Needed for Nausea or Vomiting. 30 tablet 1 07/13/19 25 Active Semaglutide-We ight Management (Wegovy) 2.4 MG/0.75ML solution auto-injector Inject 0.75 mL under the skin into the appropriate area as directed 1 (One) Time Per Week. 3 mL 5 07/13/19 25 Active amitriptyline (ELAVIL) 50 MG tabletIndicati ons:Moderate episode of recurrent major depressive disorder,Anxie ty TAKE ONE TABLET BY MOUTH EVERY NIGHT 30 tablet 5 11/22/19 25 Active buPROPion XL (WELLBUTRIN XL) 300 MG 24 hr tabletIndicati ons:Moderate episode of recurrent major depressive disorder,Anxie ty TAKE ONE TABLET BY MOUTH EVERY MORNING 30 tablet 5 11/22/19 25 Active busPIRone (BUSPAR) 7.5 MG tabletIndicati ons:Moderate episode of recurrent major depressive disorder,Anxie ty TAKE ONE TABLET BY MOUTH 2 TIMES A DAY 60 tablet 5 11/22/19 25 Active levothyroxine (SYNTHROID, LEVOTHROID) 112 MCG tabletIndicati ons:Hypothyroi dism, unspecified type TAKE ONE TABLET BY MOUTH ONCE A DAY 30 tablet 1 11/24/19 25 Active pantoprazole (PROTONIX) 40 MG EC tabletIndicati ons:GERD without esophagitis TAKE ONE TABLET BY MOUTH ONCE A DAY 90 tablet 1 12/26/19 25 Active pantoprazole (PROTONIX) 40 MG EC tabletIndicati ons:GERD without esophagitis Take 1 tablet by mouth Daily. 90 tablet 1 04/14/19 25 025 Discontinued Active Problems Problem Noted Date Diagnosed Date History of obesity 04/30/2024 Assessment & Plan (04/30/2024 7:39 PM EST): Chronic, improved, will cont on Wegovy at this time, weight is no longer in overweight range. Cont healthy diet and exercise. Dizziness 04/30/2024 Assessment & Plan (04/30/2024 7:40 PM EST): Will monitor, EKG looks good, change position slowly to prevent falls. Don't skip meals, low caffeine. Stay hydrated Routine general medical exam ination at a health care facility 01/23/2024 GERD without esophagitis 01/22/2023 Assessment & Plan (04/14/2024 3:54 PM EST): Chronic, stable, continue Protonix Assessment & Plan (01/23/2024 10:50 PM EST): Chronic, stable, continue Protonix Assessment & Plan (09/02/2023 12:51 PM EDT): Chronic, stable, continue Protonix Assessment & Plan (01/22/2023 2:35 PM EST): Chronic, stable, continue Protonix Moderate episode of recurrent major depressive d isorder 06/13/2022 Assessment & Plan (04/14/2024 3:54 PM EST): Chronic, stable, cont wellbutrin 300, cont buspar 7.5, cont elavil 50 qhs. Assessment & Plan (01/23/2024 10:50 PM EST): Chronic, uncontrolled, cont wellbutrin 300, inc buspar to 7.5, inc elavil to 50 qhs. Assessment & Plan (09/02/2023 12:51 PM EDT): Chronic, uncontrolled, cont wellbutrin 300, will d/c prozac and start elavil 10 and buspar 5bid. Follow up in 1 mo or sooner if has AE or worsening sx. Stop med and go to ER if has HI/SI. Risks and benefits of medical treatment discussed. Common side effects reviewed. Assessment & Plan (01/22/2023 2:36 PM EST): Chronic, uncontrolled, cont wellbutrin 300, will DC Zoloft and restart Prozac at 20 mg, plan to increase to 40 mg after a month if needed Assessment & Plan (08/26/2022 10:02 PM EDT): Chronic, stable, cont wellbutrin, will hold on zoloft at this time until abd sx improve since they started after starting this med. Assessment & Plan (07/10/2022 3:50 PM EDT): Chronic, uncontrolled. D/c prozac, start zoloft. Inc wellbutrin. Follow up in 1 mo or sooner if has AE or worsening sx. Stop med and go to ER if has HI/SI. Risks and benefits of medical treatment discussed. Common side effects reviewed. Adv to sched with psych for eval for possible ADHD Assessment & Plan (06/13/2022 4:00 PM EDT): Chronic, uncontrolled, start Prozac, Wellbutrin, trazodone Follow up in 1 mo or sooner if has AE or worsening sx. Stop med and go to ER if has HI/SI. Risks and benefits of medical treatment discussed. Common side effects reviewed. Anxiety 06/13/2022 Assessment & Plan (04/14/2024 3:54 PM EST): Chronic, stable, cont wellbutrin 300, cont buspar 7.5, cont elavil 50 qhs. Assessment & Plan (01/23/2024 10:49 PM EST): Chronic, uncontrolled, cont wellbutrin 300, inc buspar to 7.5, inc elavil to 50 qhs. Assessment & Plan (09/02/2023 12:51 PM EDT): Chronic, uncontrolled, cont wellbutrin 300, will d/c prozac and start elavil 10 and buspar 5bid. Follow up in 1 mo or sooner if has AE or worsening sx. Stop med and go to ER if has HI/SI. Risks and benefits of medical treatment discussed. Common side effects reviewed. Assessment & Plan (01/22/2023 2:36 PM EST): Chronic, uncontrolled, cont wellbutrin 300, will DC Zoloft and restart Prozac at 20 mg, plan to increase to 40 mg after a month if needed Assessment & Plan (08/26/2022 10:02 PM EDT): Chronic, stable, cont wellbutrin, will hold on zoloft at this time until abd sx improve since they started after starting this med. Assessment & Plan (07/10/2022 3:45 PM EDT): Chronic, uncontrolled. D/c prozac, start zoloft. Inc wellbutrin. Follow up in 1 mo or sooner if has AE or worsening sx. Stop med and go to ER if has HI/SI. Risks and benefits of medical treatment discussed. Common side effects reviewed. Assessment & Plan (06/13/2022 4:00 PM EDT): Chronic, worsening, start Prozac, start Wellbutrin, start trazodone Hypothyroidism 06/13/2022 Assessment & Plan (04/14/2024 3:54 PM EST): Chronic, stable, cont synthroid 112, check TSH Assessment & Plan (01/23/2024 10:50 PM EST): Chronic, stable, cont synthroid 112, check TSH Assessment & Plan (09/02/2023 12:51 PM EDT): Chronic, uncontrolled, cont synthroid 112, check TSH Assessment & Plan (01/22/2023 2:35 PM EST): Chronic, uncontrolled, increase Synthroid to 112, recheck TSH in 8 weeks Assessment & Plan (08/26/2022 10:00 PM EDT): Recheck TSH cont synthroid 75 at this time, adjust dose based on labs. Assessment & Plan (07/10/2022 3:45 PM EDT): Recheck TSH at f/u.. cont synthroid 75 at this time Assessment & Plan (06/13/2022 3:59 PM EDT): Check labs, will restart Synthroid based on lab results Insomnia 06/13/2022 Assessment & Plan (04/14/2024 3:53 PM EST): Chronic, stable. Cont Elavil 50 and prn melatonin Assessment & Plan (09/02/2023 12:53 PM EDT): Chronic, uncontrolled, will start elavil 10, can inc to 20 after a week if needed. Assessment & Plan (01/22/2023 2:36 PM EST): Chronic, stable on Trazodone Assessment & Plan (07/10/2022 3:45 PM EDT): Chronic, uncontrolled, inc Trazodone. Assessment & Plan (06/13/2022 4:01 PM EDT): Start trazodone, sleep hygiene reviewed. Overweight (BMI 25.0-29.9) 06/13/2022 Assessment & Plan (01/23/2024 10:50 PM EST): Patient's (Body mass index is 26.14 kg/m .) indicates that they are overweight with health conditions that include GERD . Weight is improving with treatment. BMI is is above average; BMI management plan is completed. We discussed portion control and increasing exercise. Will cont Wegovy 1.7mg at this time. Assessment & Plan (01/23/2024 10:50 PM EST): >>ASSESSMENT AND PLAN FOR CLASS 1 OBESITY DUE TO EXCESS CALORIES WITHOUT SERIOUS COMORBIDITY WITH BODY MASS INDEX (BMI) OF 33.0 TO 33.9 IN ADULT WRITTEN ON 06/13/2022 4:01 PM BY ILA ISBELL PA-C Patient's (Body mass index is 36.32 kg/m .) indicates that they are obese (BMI >30) with health conditions that include none . Weight is unchanged. BMI is above average; BMI management plan is completed. We discussed low calorie, low carb based diet program, portion control and increasing exercise. Treating thyroid may help some of the weight gain, will prescribe Wegovy and Wellbutrin Assessment & Plan (01/23/2024 10:50 PM EST): >>ASSESSMENT AND PLAN FOR CLASS 1 OBESITY DUE TO EXCESS CALORIES WITHOUT SERIOUS COMORBIDITY WITH BODY MASS INDEX (BMI) OF 33.0 TO 33.9 IN ADULT WRITTEN ON 07/10/2022 3:50 PM BY ILA ISBELL PA-C Chronic, improving, cont wellbutrin and wegovy, increase both. Cont diet/exercise Assessment & Plan (01/23/2024 10:50 PM EST): >>ASSESSMENT AND PLAN FOR CLASS 1 OBESITY DUE TO EXCESS CALORIES WITHOUT SERIOUS COMORBIDITY WITH BODY MASS INDEX (BMI) OF 33.0 TO 33.9 IN ADULT WRITTEN ON 08/26/2022 9:59 PM BY ILA ISBELL PA-C Chronic, improving with Wegovy, cont current med, suggested to cont on 0.25 dose until abd sx resolve. Assessment & Plan (01/23/2024 10:50 PM EST): >>ASSESSMENT AND PLAN FOR CLASS 1 OBESITY DUE TO EXCESS CALORIES WITHOUT SERIOUS COMORBIDITY WITH BODY MASS INDEX (BMI) OF 33.0 TO 33.9 IN ADULT WRITTEN ON 01/22/2023 2:35 PM BY ILA ISBELL PA-C Chronic, improving with treatment, Cont Wegovy 1mg and diet/exercise. Assessment & Plan (09/02/2023 12:53 PM EDT): Patient's (Body mass index is 25.2 kg/m .) indicates that they are overweight with health conditions that include GERD . Weight is improving with treatment. BMI is is above average; BMI management plan is completed. We discussed portion control and increasing exercise. Will cont Wegovy 1mg at this time. Acute non-recurrent sinusitis 06/08/2022 Assessment & Plan (06/08/2022 1:15 PM EDT): Supportive care, stay hydrated, rest. Follow up if symptoms worsen or persist. Monitor for new symptoms. Go to the ER for respiratory distress, dehydration, or severe symptoms. Allison, cont claritin D, add cough syrup prn. Encounters Date Type Department Care Team Description 12/24/2024 Refill [facility] [address] [facility] [address] [place] [address] Ila Isbell PA-C GERD without esophagitis 11/16/2024 Refill [facility] [address] [facility] [address] [place] [address] Ila Isbell PA-C Moderate episode of recurrent major depressive disorder; Anxiety; Hypothyroidism, unspecified type from Last 3 Months Immunizations Immunization Administration Dates Next Due Fluzone >6mos 01/14/2024 Fluzone (or Fluarix & Flulaval for VFC) >6mos Family History Medical History Relation Name Comments Heart disease Father dad Thyroid disease Mother mom Alzheimer's disease Paternal Grandmother Breast cancer Neg Hx Ovarian cancer Neg Hx Relation Name Status Comments Father dad Mother mom Paternal Grandmother Social History Tobacco Use Types Packs/Day Years Used Date Smoking Tobacco: Former Cigarettes Q uit: 03/15/2013 Smokeless Tobacco: Never Tobacco Cessation:Counseling Given: Not Answered Alcohol Use Standard Drinks/Week Comments Yes 2 [...] Orientation Straight 01/22/2024 8: 22 AM EST Last Filed Vital Signs Vital Sign Reading Time Taken Comments Blood Pressure 102/74 04/14/2024 3:27 PM EST Pulse 96 04/14/2024 3:27 PM EST Temperature 36.8 C (98.2 F) 04/14/2024 3:27 PM EST Respiratory Rate 20 01/14/2024 3:51 PM EDT Oxygen Saturation 99% 04/14/2024 3:27 PM EST Inhaled Oxygen Concentration - - Weight 65.6 kg (144 lb 9.6 oz) 04/14/2024 3:27 P M EST Height 162.6 cm (5' 4.02 ) 04/14/2024 3:27 PM ES T Body Mass Index 24.81 04/14/2024 3:27 PM EST Plan of Treatment Upcoming Encounters Date Type Department Care Team (Late st Contact Info) Description 12/29/2024 2:00 PM EDT Office Visit [facility] [address] [facility] [address] [place] [address] Ila Isbell PA-C [address] [place] [address] Health Maintenance Due Date Last Done Comments Annual Gynecologic Pelvic and Breast Exam 1978 TDAP/TD VACCINES (1 - Tdap) 1997 PAP SMEAR 1999 ANNUAL PHYSICAL 06/05/2022 HEPATITIS C SCREENING 06/05/2022 COLOGUARD 2023 COLON CANCER SCREENING 5 YEAR SIGMOIDOSCOPY 2023 COLONOSCOPY 2023 COLORECTAL CANCER SCREENING 2023 CT COLONOGRAPHY 2023 FECAL OCCULT BLOOD TEST 2023 FIT Testing (1 year) 2023 INFLUENZA VACCINE 10/13/2024 01/14/2024, 01/22/2023 MAMMOGRAM 03/13/2026 03/13/2024, 02/13, 08/18/2018, Additional history exists Pneumococcal Vaccine 0-49 Aged Out No longer eligible based on patient's age to complete this topic Procedures Procedure Name Priority Date/Time Associated Diagnosis Comments MAMMO SCREENING DIGITAL TOMOSYNTHESIS BILATERAL W CAD Routine 03/03/2024 3:22 PM EST Encounter for screening mammogram for malignant neoplasm of breast from Last 3 Months or Most Recently Relevant to Health Maintenance Results * Mammo Screening Digital Tomosynthesis Bilateral With CAD (03/03/2024 3:22 PM EST) Anatomical Region Laterality Modality Breast N/A Mammography 03/13/2024 11:2 9 AM EST Impressions 03/13/2024 11:31 AM EST No suspicious abnormality identified. OVERALL ASSESSMENT: ACR BI-RADS CATEGORY: 1, NEGATIVE: Recommend continued routine annual screening mammogram. The standard false-negative rate of mammography is between 10% and 25%. Complex patterns or increased breast density will markedly elevate the false-negative rate of mammography. A letter, in lay terminology, with the results of this exam will be mailed to the patient. This report was finalized on 03/13/2024 11:31 AM by Allie Newman MD. Narrative 03/13/2024 11:31 AM EST BILATERAL DIGITAL SCREENING MAMMOGRAM WITH TOMOSYNTHESIS CLINICAL INDICATION: Screening mammogram. TECHNIQUE: Bilateral low dose full field digital breast tomosynthesis imaging was performed. CAD was utilized. COMPARISON: Prior studies dating back to 08/21/2016. FINDINGS: There are scattered fibroglandular densities. RIGHT BREAST: No suspicious masses, calcifications, or areas of distortion are seen. LEFT BREAST: No suspicious masses, calcifications, or areas of distortion are seen. Ila Isbell PA-C IMG MAMMOGRAPHY ORDERABLES F inal Result from Last 3 Months or Most Recently Relevant to Health Maintenance Insurance EMPLOYEE Member Subscriber Plan / Payer (Ef fective 2021-Present) Name:Rebekah Almanzar Relation to Subscriber:Self Name:Rebekah Almanzar Payer ID:[id number] (NAIC) Type:Not on file Address: [facility] [id number] [place] [id number] Care Teams Commercial Photographer Relationship Specialty Start Date End Date Ila Isbell PA-C [address] [facility] [address] [place] [address] PCP - General Physician Watch Train Assembler 06/05/22
--- OUTSIDE RECORDS SUMMARY | 2024-12-26 11:35 | XMS_ITS | Encounter Summary ---
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 Name Role Phone Ila Isbell PA-C Primary Care Provider Reason for Visit * Reason Onset Date Comments CALL BACK 09/11/2022 Encounter Details Date Type Department Care Team (Late st Contact Info) Description 09/11/2022 Telephone [facility] [address] [phone] Ila Isbell PA-C [address] [phone] CALL BACK Social History Tobacco Use Types Packs/Day Years Used Date Smoking Tobacco: Former Cigarettes Q uit: 03/15/2013 Smokeless Tobacco: Never Alcohol Use Standard Drinks/Week Comments Yes 2 (1 standard drink = 0.6 oz pur e alcohol) PHQ-2 Answer Date Recorded Retired PHQ-9: Brief Depression Severity Measure Score 15 06/05/2022 PHQ-2 Answer Date Recorded Retired PHQ-9: Brief Depression Severity Measure Score 15 06/05/2022 Comments No Sex and Gender Information Value Date Recorded Sex Assigned at Female 01/22/2024 8:22 AM EST Legal Sex Female 11:52 AM EDT Gender Identity Female 01/22/2024 8:22 AM EST Sexual Orientation Straight 01/22/2024 8: 22 AM EST documented as of this encounter Miscellaneous Notes * Telephone Encounter - Kelli Brenner MA - 09/14/2022 10:48 AM EDT She states she will go ahead and continue the 0.5 mg. Please send this to the pharmacy listed. * Telephone Encounter - Ila Isbell PA-C - 09/11/2022 8:10 PM EDT She can continue on the lower 0.5mg dose, or call around to other pharmacies to see if they have the 1mg in stock. If we skip to the 1.7mg dose it will likely make her sick to her stomach. * Telephone Encounter - Kelli Brenner MA - 09/11/2022 4:34 PM EDT Can this be increased to 1.7? * Telephone Encounter - Yen Bradford - 09/11/2022 3:47 PM EDT Caller: Rebekah Almanzar Relationship: Self Best call back number: [phone] What is the best time to reach you: ANYTIME Who are you requesting to speak with (clinical staff, provider, specific staff member): CLINICAL STAFF Do you know the name of the person who called: SELF What was the call regarding: PATIENT STATES THAT SHE WOULD LIKE A CALL ABOUT HER Semaglutide-WeightManagement (Wegovy) 1 MG/0.5ML solution auto-injector. PATIENT STATES THAT THIS MEDICATION NEEDS MACEY CHANGED DUE TO IT NOT BEING AVAILABLE. Is it okay if the provider responds through MyChart: NO documented in this encounter Plan of Treatment Upcoming Encounters Date Type Department Care Team (Late st Contact Info) Description 12/29/2024 2:00 PM EDT Office Visit [facility] [address] [phone] Ila Isbell PA-C [address] [phone] documented as of this encounter Visit Diagnoses Not on filedocumented in this encounter Additional Health Concerns Assessment Noted Time PHQ-2 Depression Total Score: 4 06/06/19 23 3:27 PM EDT documented as of this encounter Care Teams Hand Ornament Maker Relationship Specialty Start Date End Date Ila Isbell PA-C [address] [phone] PCP - General Physician Supervisor [employer] 06/05/22 documented as of this encounter
[2024-12-26 12:25] LABS: Hematocrit 35.6 % (37.0-47.0); Hemoglobin 12.3 g/dL (12.2-16.2); Immature Granulocytes % 0.2 %; Mean Corpuscular HGB Conc 34.6 g/dL (31.8-35.4); Mean Corpuscular Hemoglobin 30.8 pg (27.0-31.2); Mean Corpuscular Volume 89.2 fl (81-99); Nucleated Red Blood Cells % 0 %; Platelet Count 268 K/mm3 (142-424); Red Blood Count 3.99 M/mm3 (4.20-5.40); Red Cell Distribution Width-SD 38.4 fL; White Blood Count 4.1 K/mm3 (4.8-10.8)
[2024-12-26 12:48] LABS: Hemoglobin A1C 4.6 % (4.0-6.0)
[2024-12-26 12:59] LABS: Alanine Aminotransferase 11 U/L (12-78); Albumin Level 3.8 g/dl (3.5-5.0); Albumin/Globulin Ratio 1.4 (1.1-1.8); Alkaline Phosphatase 43 U/L (38-126); Anion Gap 12.5 mEq/L (5-15); Aspartate Amino Transferase 19 U/L (14-36); Bilirubin,Total 0.6 mg/dl (0.2-1.3); Blood Urea Nitrogen 9 mg/dl (7-17); Calcium 8.9 mg/dl (8.4-10.2); Carbon Dioxide 25 mmol/L (22.0-30.0); Chloride 104 mmol/L (98-107); Cholesterol 165 mg/dl (140-200); Creatinine,Serum 0.80 mg/dl (0.52-1.04); Estimated Glomerular Filt Rate 77 ml/min (>60); GFR (African American) 93 ML/MIN (>60); Globulin 2.7 g/dL (1.3-3.2); Glucose 85 mg/dl (74-100); HDL Cholesterol 42 mg/dl (40-60); Potassium 4.5 mmoL/L (3.5-5.1); Sodium 137 mmol/L (136-145); Total Protein,Serum 6.5 g/dl (6.3-8.2); Triglycerides 90 mg/dl (30-150)
[2024-12-26 13:16] LABS: Free T4 (Free Thyroxine) 1.01 ng/dl (0.78-2.19)
[2024-12-26 13:32] LABS: Thyroid Stimulating Hormone 5.56 uIU/mL (0.465-4.68)
== END 2024-12-26 23:59 | disposition home or self-care (01) ==
LOC: LAB 11:33
PROVIDERS: PCP Physician Assistant; Visit Provider Physician Assistant
DX: E03.9 Hypothyroidism, unspecified (principal); R00.0 Tachycardia, unspecified; Z13.220 Encounter for screening for lipoid disorders; Z13.1 Encounter for screening for diabetes mellitus
CPT/HCPCS: 36415; 80053; 80061; 83036; 84439; 84443; 85025